=== PATIENT | female | born 1965 | race Caucasian/White ===

== ENCOUNTER → 2017-10-18 | Outpatient (CLI) | payer MEDICARE ==
[~2017-10-18] MED LIST: ALBU8.5H IH; AMLO-104 PO; ASPI-1471 PO; BUSP10TA95 PO; CAND1TAB18 PO; CYCL10TA29 PO; DICY20TA70 PO; DULO60CA56 PO; ESCI20TA38 PO; FLU45SYR25 IM ONLY; FLU60SYR30 IM ONLY; FLUO-177 PO; FLUO-202 PO; GABA-503 PO; GABA-549 PO; HYDR-2966 PO; HYDR-385 PO; HYDR-4228 PO; HYDR-4309 PO; HYDR12.561 PO; LISI20TA29 PO; METF-411 PO; METF-421 PO; METH4TAB66 PO; MIRT-22 PO; MIRT-25 PO; MIRT45TA66 PO; Magic Mouthwash PO; ONDA-2 PO; ONDA4TAB9 PO; PANT40TA65 PO; PENI-24 PO; PER PO; PRAZ1CAP26 PO; PRAZ2CAP26 PO; PRED20TA6 PO; TOPI50TA92 PO; TRAM-420 PO; [UNRECOGNIZED DRUG - CODE] PO
--- NOTE | 2017-10-18 13:20 | RADIOLOGY IMAGING REPORT ---
FACILITY: [facility] - [place] PATIENT NAME: Erica Welsh : 1965 MR: [id number] V: [id number] EXAM DATE: ORDERING PHYSICIAN: NICOLE BECK TECHNOLOGIST: Location: [facility] Patient: Erica Welsh : 1965 Visit/Account:[id number] Date of Sevice: 10/18/2017 Exam type: SOFT TISSUE HEAD NECK History: Pharyngitis, right-sided neck pain Comparison: None. Findings: Contiguous with the right submandibular gland are too well-circumscribed hypoechoic nodules one measu ring 6.4 mm in diameter one measuring 8.6 mm may represent small lymph nodes although clinical follow -up recommended. Additionally there is a 1.2 cm x 0.8 x 0.3 cm hypoechoic nodule in zone three on th e right likely a small lymph node In zone six on the left there is a small well-circumscribed 1 cm nodule probably a lymph node IMPRESSION: 1. Small bilateral lymph nodes identified in zone three on the right in zone six on the left 2. Hyp oechoic nodules are identified contiguous with the right submandibular gland. These could represent lymph nodes although a cemented or masses also included in the differential diagnosis. Pain upon the clinical concern CT of the neck may be helpful. Report Dictated By: Maria A Rosa MD at 10/18/2017 1:14 PM Report E-Signed By: Maria A Rosa MD at 10/18/2017 1:17 PM WSN:[id number]
== END ==
LOC: US 00:54
PROVIDERS: ATTEND Nurse Practitioner Primary Care
DX: R59.0 Localized enlarged lymph nodes (principal)
CPT/HCPCS: 76536

== ENCOUNTER → 2017-10-20 | Outpatient (CLI) | payer MEDICARE ==
[~2017-10-20] MED LIST changes: +IOPAMIDOL 76% 75 ML INFUS BTL 75 ML ONE
--- NOTE | 2017-10-20 16:26 | RADIOLOGY IMAGING REPORT ---
FACILITY: [facility] - [place] PATIENT NAME: Erica Welsh : 1965 MR: [id number] V: [id number] EXAM DATE: ORDERING PHYSICIAN: NICOLE BECK TECHNOLOGIST: Location: [facility] - [place] Patient: Erica eWlsh : 1965 Visit/Account:[id number] Date of Sevice: 10/20/2017 CT neck with contrast Comparison: None Additional pertinent history: Right-sided neck pain TECHNIQUE: Multiple axial images were obtained from the mid portion of the brain through the superio r mediastinum with IV contrast. Coronal and sagittal reformatted images were obtained off the axial source data. One of the following dose optimization techniques was utilized in the performance of t his exam: Automated exposure control; adjustment of the mA and/or kV according to the patient's size; or use of an iterative reconstruction technique. Specific details can be referenced in the [facility]'s radiology CT exam operational policy. CONTRAST: 75 mL of Isovue-370 FINDINGS: Visualized portions of the brain parenchyma:Negative Parotid glands/submandibular glands/thyroid: Negative Orbits: Negative Paranasal sinuses: Negative Parapharyngeal spaces: Negative Nasopharynx/oropharynx/hypopharynx: Negative Tonsillar pillars: Negative Oral tongue/tongue base: Negative True and false cords: Negative Lymph node assessment:Negative Surrounding soft tissues: Negative Vasculature: Negative Osseous structures: Spondylitic change involving the cervical spine. Otherwise negative Lung apices: Negative IMPRESSION: 1. No acute process involving the neck. Report Dictated By: Suleiman Ely MD at 10/20/2017 4:17 PM Report E-Signed By: Suleiman Ely MD at 10/20/2017 4:22 PM WSN:[id number]
== END ==
LOC: CT 07:09
PROVIDERS: ATTEND Nurse Practitioner Primary Care
DX: M47.892 Other spondylosis, cervical region (principal)
CPT/HCPCS: 36415; 70491; 82565; Q9967

== ENCOUNTER → 2017-12-21 | Outpatient (CLI) | payer MEDICARE ==
[~2017-12-21] MED LIST changes: -IOPAMIDOL 76% 75 ML INFUS BTL 75 ML ONE; +PRAZ5CAP16 PO
[2017-12-21 13:48] LABS: PLATELET COUNT, AUTOMATED 285 K/uL (150-450)
[2017-12-21 13:52] LABS: LDL CHOLESTEROL 88 mg/dl
== END ==
LOC: LAB 13:05
PROVIDERS: ATTEND Internal Medicine
DX: I10 Essential (primary) hypertension (principal); E66.9 Obesity, unspecified; F41.8 Other specified anxiety disorders; F43.10 Post-traumatic stress disorder, unspecified
CPT/HCPCS: 36415; 82040; 82247; 82310; 82374; 82435; 82465; 82565; 82947; 83718; 84075; 84132; 84155; 84295; 84443; 84450; 84460; 84478; 84520; 85025

== ENCOUNTER → 2018-06-30 | Outpatient (CLI) | payer MEDICARE ==
[~2018-06-30] MED LIST changes: +CAND1TAB PO; -CAND1TAB18 PO; -GABA-503 PO; +GABA-533 PO; -HYDR-4309 PO; +HYDR-653 PO; -METF-411 PO; -METF-421 PO; +METF-450 PO; +METF-452 PO; -MIRT45TA66 PO; +MIRT45TA8 PO
[2018-06-30 12:12] LABS: PLATELET COUNT, AUTOMATED 313 K/uL (150-450)
[2018-06-30 12:17] LABS: LDL CHOLESTEROL 107 mg/dl
== END ==
LOC: LAB 11:23
PROVIDERS: ATTEND Internal Medicine
DX: F43.10 Post-traumatic stress disorder, unspecified (principal); F41.8 Other specified anxiety disorders; E66.9 Obesity, unspecified; I10 Essential (primary) hypertension; E11.9 Type 2 diabetes mellitus without complications
CPT/HCPCS: 36415; 81001; 82040; 82247; 82310; 82374; 82435; 82465; 82565; 82947; 83036; 83718; 84075; 84132; 84155; 84295; 84443; 84450; 84460; 84478; 84520; 85025